=== PATIENT | male | born 1965 | race Caucasian/White ===

== ENCOUNTER 2019-02-14 06:44 | Emergency (ER) | payer OTHER, SELFPAY ==
[~2019-02-14] VITALS: Ht 182.9 cm; Wt 113.6 kg
[~2019-02-14 06:44] MED LIST: NOCURR
[2019-02-14] MEDS ORDERED: IBUPROFEN 600 MG TABLET PO ONE (10:00)
[2019-02-14 10:02] VITALS: BP 132/70
== END 2019-02-14 10:07 | disposition home or self-care (01) ==
LOC: EMS 06:46
DX: M79.671 Pain in right foot (principal); M19.90 Unspecified osteoarthritis, unspecified site; F19.90 Other psychoactive substance use, unspecified, uncomplicated; Z87.891 Personal history of nicotine dependence

== ENCOUNTER 2021-05-25 12:36 | Inpatient (IN) | payer MEDICAID ==
[~2021-05-25] VITALS: Ht 180.3 cm; Wt 109.8 kg
[2021-05-25 17:30] VITALS: BP 124/77
[2021-05-25] MEDS ORDERED: ACETAMINOPHEN 325 MG TABLET PO PRN (18:45)
[2021-05-25] MEDS ORDERED: TiZANidine HCL 4 MG TABLET PO PRN (19:00)
[2021-05-25] MEDS: -LIDODERM PATCH NOTE- MISC SCH (20:21)
[2021-05-25] MEDS: GABAPENTIN 300 MG CAPSULE PO SCH (20:21)
[2021-05-25] MEDS: CELECOXIB 100 MG CAPSULE PO SCH (20:21)
[2021-05-25] MEDS: SIMVASTATIN 10 MG TABLET PO SCH (20:21)
[2021-05-25] MEDS: ETHYL ALCOHOL 62% ANTISEPTIC NASAL INHALANT 0.6 ML AMPUL NASAL SCH (20:21)
[2021-05-25] MEDS: SENNA 187 MG TABLET PO SCH (20:21)
[2021-05-25] MEDS: OxyCODONE HCL 5 MG IR TABLET PO PRN (20:22)
[2021-05-25] MEDS: ACETAMINOPHEN 325 MG TABLET PO SCH (22:11)
[2021-05-26] MEDS: ACETAMINOPHEN 325 MG TABLET PO SCH ×3 (05:44→21:13)
[2021-05-26 06:38] LABS: BASOPHILS % (AUTO) 0.4 % (0.0-2.0); EOSINOPHILS % (AUTO) 2.9 % (1.0-6.0); HEMATOCRIT 34.9 % (41-53); HEMOGLOBIN 11.4 g/dL (13.5-17.5); LYMPHOCYTES # (AUTO) 1.9 K/uL (1.0-4.8); LYMPHOCYTES % (AUTO) 17.2 % (22.0-44.0); MEAN CORPUSCULAR HEMOGLOBIN 28.3 pg (26.0-34.0); MEAN CORPUSCULAR HGB CONC 32.7 G/dL (31.0-37.0); MEAN CORPUSCULAR VOLUME 87 fL (80-100); MONOCYTES # (AUTO) 1.5 K/uL (0.1-1.0); MONOCYTES % (AUTO) 13.8 % (2.0-9.0); NEUTROPHILS # (AUTO) 7.4 K/uL (1.8-7.7); NEUTROPHILS % (AUTO) 65.7 % (40.0-70.0); PLATELET COUNT (AUTO) 236 K/uL (150-450); RED BLOOD CELL COUNT(AUTO) 4.03 MIL/uL (4.50-5.90); RED CELL DISTRIBUTION WIDTH 13.6 % (11.5-14.5)
[2021-05-26] MEDS: OxyCODONE HCL 5 MG IR TABLET PO PRN ×4 (07:12→20:13)
[2021-05-26 07:30] LABS: ALANINE AMINOTRANSFERASE 38 U/L (12-78); ALBUMIN 2.6 g/dL (3.4-5.0); ALKALINE PHOSPHATASE 49 U/L (46-116); ANION GAP 4 mmol/L (8-16); ASPARTATE AMINOTRANSFERASE 24 U/L (15-37); BILIRUBIN,TOTAL 0.6 mg/dL (0.1-1.0); CALCIUM, TOTAL 8.3 mg/dL (8.8-10.5); CARBON DIOXIDE 32 mmol/L (22-29); CHLORIDE 104 mmol/L (98-107); CREATININE 0.82 mg/dL (0.60-1.30); GLOMERULAR FILTR. RATE CALC > 60 mL/min (>60); GLUCOSE,RANDOM 123 mg/dL (70-110); POTASSIUM 4.4 mmol/L (3.5-5.1); SODIUM SERUM 140 mmol/L (136-145); TOTAL PROTEIN, SERUM 6.1 g/dL (6.4-8.2); UREA NITROGEN, BLOOD 13 mg/dL (7-18)
[2021-05-26] MEDS: LIDOCAINE 5% TRANSDERMAL PATCH TD SCH (08:37)
[2021-05-26] MEDS: GABAPENTIN 300 MG CAPSULE PO SCH ×3 (08:38→21:11)
[2021-05-26] MEDS: DOCUSATE SODIUM 250 MG CAPSULE PO SCH (08:38)
[2021-05-26] MEDS: CELECOXIB 100 MG CAPSULE PO SCH ×2 (08:42→21:12)
[2021-05-26] MEDS: ETHYL ALCOHOL 62% ANTISEPTIC NASAL INHALANT 0.6 ML AMPUL NASAL SCH ×2 (08:43→21:11)
[2021-05-26 09:03] VITALS: BP 118/75
[2021-05-26 16:01] VITALS: BP 124/71
[2021-05-26] MEDS: -LIDODERM PATCH NOTE- MISC SCH (21:00)
[2021-05-26] MEDS: SENNA 187 MG TABLET PO SCH (21:12)
[2021-05-26] MEDS: SIMVASTATIN 10 MG TABLET PO SCH (21:12)
[2021-05-27 00:58] VITALS: BP 114/60
[2021-05-27] MEDS ORDERED: SIMV-259 PO (01:38)
[2021-05-27] MEDS ORDERED: GABA-1181 PO (01:38)
[2021-05-27] MEDS ORDERED: CELE100 PO (01:41)
[2021-05-27] MEDS ORDERED: TIZA2CAP PO (01:41)
[2021-05-27] MEDS: OxyCODONE HCL 5 MG IR TABLET PO PRN ×4 (04:58→21:33)
[2021-05-27] MEDS: ACETAMINOPHEN 325 MG TABLET PO SCH ×3 (06:18→22:43)
[2021-05-27] MEDS: LIDOCAINE 5% TRANSDERMAL PATCH TD SCH (09:00)
[2021-05-27] MEDS: DOCUSATE SODIUM 250 MG CAPSULE PO SCH (09:01)
[2021-05-27] MEDS: ETHYL ALCOHOL 62% ANTISEPTIC NASAL INHALANT 0.6 ML AMPUL NASAL SCH ×2 (09:01→21:31)
[2021-05-27] MEDS: CELECOXIB 100 MG CAPSULE PO SCH ×2 (09:01→21:32)
[2021-05-27] MEDS: GABAPENTIN 300 MG CAPSULE PO SCH ×3 (09:02→21:32)
[2021-05-27 09:11] VITALS: BP 120/77
[2021-05-27 15:23] VITALS: BP 124/68
[2021-05-27] MEDS: ENOXAPARIN SODIUM 40 MG/0.4 ML PF SYRINGE SQ SCH (21:31)
[2021-05-27] MEDS: SIMVASTATIN 10 MG TABLET PO SCH (21:31)
[2021-05-27] MEDS: SENNA 187 MG TABLET PO SCH (21:32)
[2021-05-27] MEDS: -LIDODERM PATCH NOTE- MISC SCH (21:33)
[2021-05-27] MEDS: MELATONIN 5 MG TABLET PO PRN (22:43)
[2021-05-28 03:31] VITALS: BP 134/80
[2021-05-28] MEDS: OxyCODONE HCL 5 MG IR TABLET PO PRN ×3 (03:31→16:23)
[2021-05-28] MEDS: ACETAMINOPHEN 325 MG TABLET PO SCH ×3 (06:13→21:46)
[2021-05-28] MEDS: ENOXAPARIN SODIUM 40 MG/0.4 ML PF SYRINGE SQ SCH (08:15)
[2021-05-28] MEDS: DOCUSATE SODIUM 250 MG CAPSULE PO SCH (08:15)
[2021-05-28] MEDS: ETHYL ALCOHOL 62% ANTISEPTIC NASAL INHALANT 0.6 ML AMPUL NASAL SCH ×2 (08:15→20:31)
[2021-05-28] MEDS: CELECOXIB 100 MG CAPSULE PO SCH ×2 (08:16→20:32)
[2021-05-28] MEDS: GABAPENTIN 300 MG CAPSULE PO SCH ×3 (08:17→20:31)
[2021-05-28] MEDS: LIDOCAINE 5% TRANSDERMAL PATCH TD SCH (08:18)
[2021-05-28 09:06] VITALS: BP 131/76
[2021-05-28] MEDS: APIXABAN 5 MG TABLET PO SCH ×2 (11:17→20:32)
[2021-05-28 16:23] VITALS: BP 132/74
[2021-05-28] MEDS: -LIDODERM PATCH NOTE- MISC SCH (20:26)
[2021-05-28] MEDS: SIMVASTATIN 10 MG TABLET PO SCH (20:31)
[2021-05-28] MEDS: SENNA 187 MG TABLET PO SCH (20:32)
[2021-05-28] MEDS: MELATONIN 5 MG TABLET PO PRN (20:38)
[2021-05-29 01:46] VITALS: BP 134/77
[2021-05-29] MEDS: ACETAMINOPHEN 325 MG TABLET PO SCH ×3 (05:23→21:02)
[2021-05-29] MEDS: ETHYL ALCOHOL 62% ANTISEPTIC NASAL INHALANT 0.6 ML AMPUL NASAL SCH ×2 (08:22→20:21)
[2021-05-29] MEDS: LIDOCAINE 5% TRANSDERMAL PATCH TD SCH (08:22)
[2021-05-29] MEDS: CELECOXIB 100 MG CAPSULE PO SCH ×2 (08:22→20:21)
[2021-05-29] MEDS: DOCUSATE SODIUM 250 MG CAPSULE PO SCH (08:22)
[2021-05-29] MEDS: APIXABAN 5 MG TABLET PO SCH ×2 (08:23→20:21)
[2021-05-29] MEDS: GABAPENTIN 300 MG CAPSULE PO SCH ×3 (08:23→20:21)
[2021-05-29 08:35] VITALS: BP 128/78
[2021-05-29] MEDS: OxyCODONE HCL 5 MG IR TABLET PO PRN ×3 (08:35→16:53)
[2021-05-29 16:08] VITALS: BP 136/69
[2021-05-29] MEDS: SENNA 187 MG TABLET PO SCH (20:22)
[2021-05-29] MEDS: MELATONIN 5 MG TABLET PO PRN (20:22)
[2021-05-29] MEDS: -LIDODERM PATCH NOTE- MISC SCH (20:22)
[2021-05-29] MEDS: SIMVASTATIN 10 MG TABLET PO SCH (20:36)
[2021-05-30 00:09] VITALS: BP 117/69
[2021-05-30] MEDS: ACETAMINOPHEN 325 MG TABLET PO SCH ×3 (05:55→21:52)
[2021-05-30] MEDS: ETHYL ALCOHOL 62% ANTISEPTIC NASAL INHALANT 0.6 ML AMPUL NASAL SCH ×2 (07:50→20:38)
[2021-05-30] MEDS: GABAPENTIN 300 MG CAPSULE PO SCH ×3 (07:52→20:39)
[2021-05-30] MEDS: APIXABAN 5 MG TABLET PO SCH ×2 (07:52→20:40)
[2021-05-30] MEDS: DOCUSATE SODIUM 250 MG CAPSULE PO SCH (07:52)
[2021-05-30] MEDS: CELECOXIB 100 MG CAPSULE PO SCH (07:52)
[2021-05-30] MEDS: LIDOCAINE 5% TRANSDERMAL PATCH TD SCH (07:53)
[2021-05-30 08:00] VITALS: BP 134/81
[2021-05-30] MEDS: OxyCODONE HCL 5 MG IR TABLET PO PRN ×2 (08:00→12:52)
[2021-05-30] MEDS: FAMOTIDINE 20 MG TABLET PO SCH ×2 (12:52→20:40)
[2021-05-30 15:10] VITALS: BP 120/68
[2021-05-30] MEDS: SENNA 187 MG TABLET PO SCH (20:39)
[2021-05-30] MEDS: SIMVASTATIN 10 MG TABLET PO SCH (20:39)
[2021-05-30] MEDS: MELATONIN 5 MG TABLET PO PRN (20:39)
[2021-05-30] MEDS: -LIDODERM PATCH NOTE- MISC SCH (21:06)
[2021-05-31 00:44] VITALS: BP 131/73
[2021-05-31] MEDS: ACETAMINOPHEN 325 MG TABLET PO SCH ×3 (06:21→21:51)
[2021-05-31] MEDS: ETHYL ALCOHOL 62% ANTISEPTIC NASAL INHALANT 0.6 ML AMPUL NASAL SCH ×2 (08:49→20:36)
[2021-05-31] MEDS: DOCUSATE SODIUM 250 MG CAPSULE PO SCH (08:49)
[2021-05-31] MEDS: APIXABAN 5 MG TABLET PO SCH ×2 (08:50→20:36)
[2021-05-31] MEDS: FAMOTIDINE 20 MG TABLET PO SCH ×2 (08:50→20:38)
[2021-05-31] MEDS: GABAPENTIN 300 MG CAPSULE PO SCH ×3 (08:50→20:37)
[2021-05-31] MEDS: LIDOCAINE 5% TRANSDERMAL PATCH TD SCH (08:50)
[2021-05-31 08:56] VITALS: BP 133/85
[2021-05-31 15:53] VITALS: BP 132/74
[2021-05-31] MEDS: MELATONIN 5 MG TABLET PO PRN (20:36)
[2021-05-31] MEDS: SIMVASTATIN 10 MG TABLET PO SCH (20:36)
[2021-05-31] MEDS: SENNA 187 MG TABLET PO SCH (20:37)
[2021-05-31] MEDS: -LIDODERM PATCH NOTE- MISC SCH (20:38)
[2021-06-01] VITALS: BP 108/58
[2021-06-01] MEDS: ACETAMINOPHEN 325 MG TABLET PO SCH ×3 (05:50→21:03)
[2021-06-01] MEDS: ETHYL ALCOHOL 62% ANTISEPTIC NASAL INHALANT 0.6 ML AMPUL NASAL SCH ×2 (07:56→21:03)
[2021-06-01] MEDS: APIXABAN 5 MG TABLET PO SCH ×2 (07:56→21:03)
[2021-06-01] MEDS: DOCUSATE SODIUM 250 MG CAPSULE PO SCH (07:56)
[2021-06-01] MEDS: LIDOCAINE 5% TRANSDERMAL PATCH TD SCH (07:56)
[2021-06-01] MEDS: GABAPENTIN 300 MG CAPSULE PO SCH ×3 (07:57→21:03)
[2021-06-01] MEDS: FAMOTIDINE 20 MG TABLET PO SCH ×2 (07:57→21:03)
[2021-06-01 08:31] VITALS: BP 119/72
[2021-06-01] MEDS: OxyCODONE HCL 5 MG IR TABLET PO PRN ×2 (08:31→13:40)
[2021-06-01 16:37] VITALS: BP 143/75
[2021-06-01] MEDS: SIMVASTATIN 10 MG TABLET PO SCH (21:03)
[2021-06-01] MEDS: MELATONIN 5 MG TABLET PO PRN (21:03)
[2021-06-01] MEDS: SENNA 187 MG TABLET PO SCH (21:04)
[2021-06-01] MEDS: -LIDODERM PATCH NOTE- MISC SCH (21:04)
[2021-06-02] MEDS: ACETAMINOPHEN 325 MG TABLET PO SCH ×3 (05:45→21:13)
[2021-06-02 06:25] VITALS: BP 122/93
[2021-06-02] MEDS: GABAPENTIN 300 MG CAPSULE PO SCH ×3 (08:33→20:33)
[2021-06-02] MEDS: DOCUSATE SODIUM 250 MG CAPSULE PO SCH (08:33)
[2021-06-02] MEDS: APIXABAN 5 MG TABLET PO SCH ×2 (08:33→20:34)
[2021-06-02] MEDS: OxyCODONE HCL 5 MG IR TABLET PO PRN ×2 (08:33→17:57)
[2021-06-02] MEDS: FAMOTIDINE 20 MG TABLET PO SCH ×2 (08:33→20:33)
[2021-06-02] MEDS: ETHYL ALCOHOL 62% ANTISEPTIC NASAL INHALANT 0.6 ML AMPUL NASAL SCH ×2 (08:34→20:33)
[2021-06-02] MEDS: LIDOCAINE 5% TRANSDERMAL PATCH TD SCH (08:34)
[2021-06-02 08:40] VITALS: BP 119/78
[2021-06-02 16:00] VITALS: BP 121/71
[2021-06-02] MEDS: SENNA 187 MG TABLET PO SCH (20:33)
[2021-06-02] MEDS: MELATONIN 5 MG TABLET PO PRN (20:33)
[2021-06-02] MEDS: SIMVASTATIN 10 MG TABLET PO SCH (20:34)
[2021-06-02] MEDS: -LIDODERM PATCH NOTE- MISC SCH (20:34)
[2021-06-03] MEDS: ACETAMINOPHEN 325 MG TABLET PO SCH ×3 (05:32→21:02)
[2021-06-03 06:00] VITALS: BP 113/76
[2021-06-03] MEDS: ETHYL ALCOHOL 62% ANTISEPTIC NASAL INHALANT 0.6 ML AMPUL NASAL SCH ×2 (07:53→20:39)
[2021-06-03] MEDS: FAMOTIDINE 20 MG TABLET PO SCH ×2 (07:54→20:39)
[2021-06-03] MEDS: APIXABAN 5 MG TABLET PO SCH ×2 (07:54→20:39)
[2021-06-03] MEDS: GABAPENTIN 300 MG CAPSULE PO SCH ×3 (07:54→20:39)
[2021-06-03] MEDS: DOCUSATE SODIUM 250 MG CAPSULE PO SCH (07:54)
[2021-06-03] MEDS: LIDOCAINE 5% TRANSDERMAL PATCH TD SCH (07:54)
[2021-06-03 08:53] VITALS: BP 113/76
[2021-06-03] MEDS: OxyCODONE HCL 5 MG IR TABLET PO PRN (10:48)
[2021-06-03 16:01] VITALS: BP 119/70
[2021-06-03] MEDS: SENNA 187 MG TABLET PO SCH (20:39)
[2021-06-03] MEDS: MELATONIN 5 MG TABLET PO PRN (20:39)
[2021-06-03] MEDS: -LIDODERM PATCH NOTE- MISC SCH (20:39)
[2021-06-03] MEDS: SIMVASTATIN 10 MG TABLET PO SCH (20:41)
[2021-06-04] MEDS: ACETAMINOPHEN 325 MG TABLET PO SCH ×3 (05:45→21:12)
[2021-06-04 05:59] VITALS: BP 117/72
[2021-06-04] MEDS: ETHYL ALCOHOL 62% ANTISEPTIC NASAL INHALANT 0.6 ML AMPUL NASAL SCH ×2 (07:57→21:10)
[2021-06-04] MEDS: DOCUSATE SODIUM 250 MG CAPSULE PO SCH (07:57)
[2021-06-04] MEDS: FAMOTIDINE 20 MG TABLET PO SCH ×2 (07:57→21:12)
[2021-06-04] MEDS: GABAPENTIN 300 MG CAPSULE PO SCH ×3 (07:57→21:11)
[2021-06-04] MEDS: LIDOCAINE 5% TRANSDERMAL PATCH TD SCH (07:58)
[2021-06-04 08:25] VITALS: BP 129/76
[2021-06-04] MEDS: APIXABAN 5 MG TABLET PO SCH ×2 (09:52→21:12)
[2021-06-04] MEDS: OxyCODONE HCL 5 MG IR TABLET PO PRN ×2 (09:53→15:02)
[2021-06-04 15:03] VITALS: BP 122/81
[2021-06-04] MEDS: MELATONIN 5 MG TABLET PO PRN (21:11)
[2021-06-04] MEDS: SIMVASTATIN 10 MG TABLET PO SCH (21:11)
[2021-06-04] MEDS: SENNA 187 MG TABLET PO SCH (21:11)
[2021-06-04] MEDS: -LIDODERM PATCH NOTE- MISC SCH (21:13)
[2021-06-05] VITALS: BP 111/63
[2021-06-05] MEDS: ACETAMINOPHEN 325 MG TABLET PO SCH ×3 (06:15→20:43)
[2021-06-05] MEDS: DOCUSATE SODIUM 250 MG CAPSULE PO SCH (08:14)
[2021-06-05] MEDS: FAMOTIDINE 20 MG TABLET PO SCH ×2 (08:15→20:42)
[2021-06-05] MEDS: GABAPENTIN 300 MG CAPSULE PO SCH ×3 (08:15→20:42)
[2021-06-05] MEDS: ETHYL ALCOHOL 62% ANTISEPTIC NASAL INHALANT 0.6 ML AMPUL NASAL SCH ×2 (08:15→20:41)
[2021-06-05] MEDS: APIXABAN 5 MG TABLET PO SCH ×2 (08:15→20:42)
[2021-06-05] MEDS: LIDOCAINE 5% TRANSDERMAL PATCH TD SCH (08:16)
[2021-06-05 08:55] VITALS: BP 116/77
[2021-06-05] MEDS: OxyCODONE HCL 5 MG IR TABLET PO PRN ×2 (10:07→16:06)
[2021-06-05 16:00] VITALS: BP 122/69
[2021-06-05] MEDS: SENNA 187 MG TABLET PO SCH (20:42)
[2021-06-05] MEDS: MELATONIN 5 MG TABLET PO PRN (20:42)
[2021-06-05] MEDS: SIMVASTATIN 10 MG TABLET PO SCH (20:42)
[2021-06-05] MEDS: -LIDODERM PATCH NOTE- MISC SCH (20:43)
[2021-06-06] VITALS: BP 118/70
[2021-06-06] MEDS: ACETAMINOPHEN 325 MG TABLET PO SCH ×3 (06:04→21:05)
[2021-06-06 06:19] LABS: BASOPHILS % (AUTO) 0.6 % (0.0-2.0); EOSINOPHILS % (AUTO) 5.7 % (1.0-6.0); HEMATOCRIT 37.8 % (41-53); HEMOGLOBIN 12.5 g/dL (13.5-17.5); MEAN CORPUSCULAR HEMOGLOBIN 28.6 pg (26.0-34.0); MEAN CORPUSCULAR VOLUME 87 fL (80-100); MONOCYTES # (AUTO) 0.7 K/uL (0.1-1.0); MONOCYTES % (AUTO) 11.8 % (2.0-9.0); NEUTROPHILS # (AUTO) 3.2 K/uL (1.8-7.7); NEUTROPHILS % (AUTO) 49.9 % (40.0-70.0); PLATELET COUNT (AUTO) 302 K/uL (150-450); RED BLOOD CELL COUNT(AUTO) 4.37 MIL/uL (4.50-5.90); RED CELL DISTRIBUTION WIDTH 13.9 % (11.5-14.5)
[2021-06-06 06:43] LABS: ALANINE AMINOTRANSFERASE 29 U/L (12-78); ALBUMIN 3.2 g/dL (3.4-5.0); ALKALINE PHOSPHATASE 66 U/L (46-116); ANION GAP 1 mmol/L (8-16); ASPARTATE AMINOTRANSFERASE 16 U/L (15-37); BILIRUBIN,TOTAL 0.4 mg/dL (0.1-1.0); CALCIUM, TOTAL 8.5 mg/dL (8.8-10.5); CARBON DIOXIDE 32 mmol/L (22-29); CHLORIDE 107 mmol/L (98-107); GLOMERULAR FILTR. RATE CALC > 60 mL/min (>60); GLUCOSE,RANDOM 103 mg/dL (70-110); POTASSIUM 4.4 mmol/L (3.5-5.1); SODIUM SERUM 140 mmol/L (136-145); TOTAL PROTEIN, SERUM 6.4 g/dL (6.4-8.2); UREA NITROGEN, BLOOD 12 mg/dL (7-18)
[2021-06-06] MEDS: FAMOTIDINE 20 MG TABLET PO SCH ×2 (07:37→21:00)
[2021-06-06] MEDS: DOCUSATE SODIUM 250 MG CAPSULE PO SCH (07:37)
[2021-06-06] MEDS: ETHYL ALCOHOL 62% ANTISEPTIC NASAL INHALANT 0.6 ML AMPUL NASAL SCH ×2 (07:37→21:00)
[2021-06-06] MEDS: APIXABAN 5 MG TABLET PO SCH ×2 (07:38→21:00)
[2021-06-06] MEDS: GABAPENTIN 300 MG CAPSULE PO SCH ×3 (07:38→21:00)
[2021-06-06] MEDS: LIDOCAINE 5% TRANSDERMAL PATCH TD SCH (07:38)
[2021-06-06 08:50] VITALS: BP 127/77
[2021-06-06] MEDS: OxyCODONE HCL 5 MG IR TABLET PO PRN ×2 (08:50→16:04)
[2021-06-06 16:04] VITALS: BP 116/73
[2021-06-06] MEDS: SIMVASTATIN 10 MG TABLET PO SCH (21:00)
[2021-06-06] MEDS: SENNA 187 MG TABLET PO SCH (21:00)
[2021-06-06] MEDS: MELATONIN 5 MG TABLET PO PRN (21:01)
[2021-06-06] MEDS: -LIDODERM PATCH NOTE- MISC SCH (21:03)
[2021-06-07 04:00] VITALS: BP 108/50
[2021-06-07] MEDS: ACETAMINOPHEN 325 MG TABLET PO SCH ×3 (05:50→21:43)
[2021-06-07] MEDS: APIXABAN 5 MG TABLET PO SCH ×2 (08:18→20:34)
[2021-06-07] MEDS: GABAPENTIN 300 MG CAPSULE PO SCH ×3 (08:18→20:34)
[2021-06-07] MEDS: FAMOTIDINE 20 MG TABLET PO SCH ×2 (08:18→20:35)
[2021-06-07] MEDS: DOCUSATE SODIUM 250 MG CAPSULE PO SCH (08:18)
[2021-06-07] MEDS: ETHYL ALCOHOL 62% ANTISEPTIC NASAL INHALANT 0.6 ML AMPUL NASAL SCH ×2 (08:19→20:34)
[2021-06-07] MEDS: LIDOCAINE 5% TRANSDERMAL PATCH TD SCH (08:19)
[2021-06-07 09:40] VITALS: BP 119/78
[2021-06-07] MEDS: OxyCODONE HCL 5 MG IR TABLET PO PRN ×2 (10:48→15:15)
[2021-06-07 15:15] VITALS: BP 109/73
[2021-06-07] MEDS: SENNA 187 MG TABLET PO SCH (20:34)
[2021-06-07] MEDS: MELATONIN 5 MG TABLET PO PRN (20:35)
[2021-06-07] MEDS: SIMVASTATIN 10 MG TABLET PO SCH (20:35)
[2021-06-07] MEDS: -LIDODERM PATCH NOTE- MISC SCH (20:35)
[2021-06-08] MEDS: ACETAMINOPHEN 325 MG TABLET PO SCH ×3 (05:02→21:00)
[2021-06-08 05:15] VITALS: BP 117/70
[2021-06-08] MEDS: GABAPENTIN 300 MG CAPSULE PO SCH ×3 (08:44→20:59)
[2021-06-08] MEDS: APIXABAN 5 MG TABLET PO SCH ×2 (08:45→20:59)
[2021-06-08] MEDS: DOCUSATE SODIUM 250 MG CAPSULE PO SCH (08:47)
[2021-06-08] MEDS: FAMOTIDINE 20 MG TABLET PO SCH ×2 (08:47→20:59)
[2021-06-08 08:54] VITALS: BP 114/71
[2021-06-08] MEDS: ETHYL ALCOHOL 62% ANTISEPTIC NASAL INHALANT 0.6 ML AMPUL NASAL SCH ×2 (09:32→21:07)
[2021-06-08] MEDS: LIDOCAINE 5% TRANSDERMAL PATCH TD SCH (09:32)
[2021-06-08] MEDS: OxyCODONE HCL 5 MG IR TABLET PO PRN ×2 (10:16→16:24)
[2021-06-08 15:30] VITALS: BP 118/68
[2021-06-08] MEDS: -LIDODERM PATCH NOTE- MISC SCH (20:12)
[2021-06-08] MEDS: SIMVASTATIN 10 MG TABLET PO SCH (20:59)
[2021-06-08] MEDS: SENNA 187 MG TABLET PO SCH (20:59)
[2021-06-08] MEDS: MELATONIN 5 MG TABLET PO PRN (20:59)
[2021-06-09] VITALS: BP 109/66
[2021-06-09] MEDS: ACETAMINOPHEN 325 MG TABLET PO SCH ×3 (06:15→21:12)
[2021-06-09] MEDS: APIXABAN 5 MG TABLET PO SCH ×3 (09:00→21:11)
[2021-06-09] MEDS: ETHYL ALCOHOL 62% ANTISEPTIC NASAL INHALANT 0.6 ML AMPUL NASAL SCH ×2 (09:00→21:09)
[2021-06-09] MEDS: FAMOTIDINE 20 MG TABLET PO SCH ×3 (09:00→21:11)
[2021-06-09] MEDS: GABAPENTIN 300 MG CAPSULE PO SCH ×4 (09:00→21:11)
[2021-06-09 09:08] VITALS: BP 125/79
[2021-06-09] MEDS: DOCUSATE SODIUM 250 MG CAPSULE PO SCH (09:09)
[2021-06-09] MEDS: LIDOCAINE 5% TRANSDERMAL PATCH TD SCH (09:12)
[2021-06-09] MEDS: OxyCODONE HCL 5 MG IR TABLET PO PRN (09:20)
[2021-06-09 16:29] VITALS: BP 108/56
[2021-06-09] MEDS: SIMVASTATIN 10 MG TABLET PO SCH (21:11)
[2021-06-09] MEDS: SENNA 187 MG TABLET PO SCH (21:11)
[2021-06-09] MEDS: -LIDODERM PATCH NOTE- MISC SCH (21:15)
[2021-06-09] MEDS: MELATONIN 5 MG TABLET PO PRN (21:18)
[2021-06-10 05:00] VITALS: BP 121/73
[2021-06-10] MEDS: ACETAMINOPHEN 325 MG TABLET PO SCH ×3 (05:47→21:33)
[2021-06-10 08:30] VITALS: BP 112/56
[2021-06-10] MEDS: ETHYL ALCOHOL 62% ANTISEPTIC NASAL INHALANT 0.6 ML AMPUL NASAL SCH ×2 (08:55→21:32)
[2021-06-10] MEDS: APIXABAN 5 MG TABLET PO SCH ×2 (08:55→21:33)
[2021-06-10] MEDS: DOCUSATE SODIUM 250 MG CAPSULE PO SCH (08:55)
[2021-06-10] MEDS: GABAPENTIN 300 MG CAPSULE PO SCH ×3 (08:56→21:32)
[2021-06-10] MEDS: LIDOCAINE 5% TRANSDERMAL PATCH TD SCH (08:56)
[2021-06-10] MEDS: FAMOTIDINE 20 MG TABLET PO SCH ×2 (08:56→21:33)
[2021-06-10 16:00] VITALS: BP 122/69
[2021-06-10] MEDS: OxyCODONE HCL 5 MG IR TABLET PO PRN (16:40)
[2021-06-10] MEDS: SENNA 187 MG TABLET PO SCH (21:33)
[2021-06-10] MEDS: SIMVASTATIN 10 MG TABLET PO SCH (21:33)
[2021-06-10] MEDS: MELATONIN 5 MG TABLET PO PRN (21:33)
[2021-06-10] MEDS: -LIDODERM PATCH NOTE- MISC SCH (21:34)
[2021-06-11 05:20] VITALS: BP 104/51
[2021-06-11] MEDS: ACETAMINOPHEN 325 MG TABLET PO SCH ×3 (06:00→21:18)
[2021-06-11] MEDS: ETHYL ALCOHOL 62% ANTISEPTIC NASAL INHALANT 0.6 ML AMPUL NASAL SCH ×2 (08:51→20:20)
[2021-06-11] MEDS: FAMOTIDINE 20 MG TABLET PO SCH ×2 (08:52→20:20)
[2021-06-11] MEDS: APIXABAN 5 MG TABLET PO SCH ×2 (08:52→20:20)
[2021-06-11] MEDS: DOCUSATE SODIUM 250 MG CAPSULE PO SCH (08:52)
[2021-06-11] MEDS: GABAPENTIN 300 MG CAPSULE PO SCH ×3 (08:52→20:20)
[2021-06-11] MEDS: LIDOCAINE 5% TRANSDERMAL PATCH TD SCH (08:52)
[2021-06-11 09:32] VITALS: BP 109/76
[2021-06-11] MEDS: OxyCODONE HCL 5 MG IR TABLET PO PRN ×2 (10:37→16:35)
[2021-06-11 16:35] VITALS: BP 116/70
[2021-06-11] MEDS: -LIDODERM PATCH NOTE- MISC SCH (20:20)
[2021-06-11] MEDS: MELATONIN 5 MG TABLET PO PRN (20:20)
[2021-06-11] MEDS: SENNA 187 MG TABLET PO SCH (20:20)
[2021-06-11] MEDS: SIMVASTATIN 10 MG TABLET PO SCH (20:20)
[2021-06-12] VITALS: BP 111/58
[2021-06-12] MEDS: ACETAMINOPHEN 325 MG TABLET PO SCH ×3 (05:25→21:10)
[2021-06-12] MEDS: FAMOTIDINE 20 MG TABLET PO SCH ×2 (08:12→21:09)
[2021-06-12] MEDS: ETHYL ALCOHOL 62% ANTISEPTIC NASAL INHALANT 0.6 ML AMPUL NASAL SCH ×2 (08:12→21:10)
[2021-06-12] MEDS: GABAPENTIN 300 MG CAPSULE PO SCH ×3 (08:12→21:09)
[2021-06-12] MEDS: APIXABAN 5 MG TABLET PO SCH ×2 (08:12→21:09)
[2021-06-12] MEDS: LIDOCAINE 5% TRANSDERMAL PATCH TD SCH (08:15)
[2021-06-12] MEDS: DOCUSATE SODIUM 250 MG CAPSULE PO SCH (08:15)
[2021-06-12 08:52] VITALS: BP 97/68
[2021-06-12] MEDS ORDERED: ACET-784 PO (10:27)
[2021-06-12] MEDS ORDERED: LIDO700A15 TP (10:27)
[2021-06-12] MEDS ORDERED: APIX5TAB PO (10:27)
[2021-06-12] MEDS ORDERED: DOCU-350 PO (10:27)
[2021-06-12] MEDS ORDERED: SENN8.6T90 PO (10:27)
[2021-06-12] MEDS ORDERED: FAMO20 PO (10:27)
[2021-06-12 16:08] VITALS: BP 125/75
[2021-06-12] MEDS: OxyCODONE HCL 5 MG IR TABLET PO PRN (16:08)
[2021-06-12] MEDS: MELATONIN 5 MG TABLET PO PRN (21:10)
[2021-06-12] MEDS: SENNA 187 MG TABLET PO SCH (21:10)
[2021-06-12] MEDS: -LIDODERM PATCH NOTE- MISC SCH (21:11)
[2021-06-12] MEDS: SIMVASTATIN 10 MG TABLET PO SCH (21:12)
[2021-06-13 00:39] VITALS: BP 98/50
[2021-06-13 01:29] VITALS: BP 110/76
[2021-06-13] MEDS: ACETAMINOPHEN 325 MG TABLET PO SCH (05:23)
[2021-06-13] MEDS: APIXABAN 5 MG TABLET PO SCH ×2 (07:40→15:27)
[2021-06-13] MEDS: DOCUSATE SODIUM 250 MG CAPSULE PO SCH (07:40)
[2021-06-13] MEDS: ETHYL ALCOHOL 62% ANTISEPTIC NASAL INHALANT 0.6 ML AMPUL NASAL SCH (07:40)
[2021-06-13] MEDS: GABAPENTIN 300 MG CAPSULE PO SCH (07:40)
[2021-06-13] MEDS: FAMOTIDINE 20 MG TABLET PO SCH (07:41)
[2021-06-13] MEDS: LIDOCAINE 5% TRANSDERMAL PATCH TD SCH ×2 (07:42→15:26)
[2021-06-13 07:45] VITALS: BP 106/81
[2021-06-13] MEDS: OxyCODONE HCL 5 MG IR TABLET PO PRN (07:45)
[2021-06-13] MEDS ORDERED: OXYC5 PO (12:11)
[2021-06-13 15:40] VITALS: BP 124/75
== END 2021-06-13 16:00 | disposition home or self-care (01) | DRG 347 ==
LOC: 2WR 17:16
PROVIDERS: ADMIT Physical Medicine & Rehabilitation; ATTEND Physical Medicine & Rehabilitation
DX: M48.061 Spinal stenosis, lumbar region without neurogenic claudication (principal); E46 Unspecified protein-calorie malnutrition; I82.412 Acute embolism and thrombosis of left femoral vein; D64.9 Anemia, unspecified; D72.829 Elevated white blood cell count, unspecified; E78.5 Hyperlipidemia, unspecified; G62.9 Polyneuropathy, unspecified; I82.442 Acute embolism and thrombosis of left tibial vein; M21.372 Foot drop, left foot; K59.00 Constipation, unspecified; E66.9 Obesity, unspecified; Z68.33 Body mass index [BMI] 33.0-33.9, adult; K59.03 Drug induced constipation; K31.89 Other diseases of stomach and duodenum; T40.2X5A Adverse effect of other opioids, initial encounter; Y92.89 Other specified places as the place of occurrence of the external cause
CPT/HCPCS: 80053; 85025; 87081; 93970; 97110; 97112; 97116; 97150; 97162; 97166; 97530; 97535; 99366; J1650; Q9967